=== PATIENT | male | born 1990 | race Caucasian/White ===

== ENCOUNTER 2021-01-10 16:15 | Emergency (ER) | payer OTHER, SELFPAY ==
--- NOTE | 2021-01-10 07:44 | ECG_ITS ---
Test Reason : CHEST PAIN Blood Pressure : / mmHG Vent. Rate : 088 BPM Atrial Rate : 088 BPM P-R Int : 124 ms QRS Dur : 082 ms QT Int : 304 ms P-R-T Axes : 043 062 048 degrees QTc Int : 367 ms Normal sinus rhythm Normal ECG No previous ECGs available Referred By: Jam Andrade Electronically Signed By:VIRGIL TOSCANO
== END 2021-01-10 21:00 | disposition left against medical advice (07) ==
PROVIDERS: Emergency Provider Emergency Medicine
DX: R05 Cough (principal)
CPT/HCPCS: 93005; 99283